=== PATIENT | male | born 1980 | race Caucasian/White ===

== ENCOUNTER 2020-04-02 13:36 | Emergency (ER) | payer BC, SELFPAY ==
--- NOTE | ~2020-04-02 | XR_ITS ---
XR knee RT min 4V DATE: 04/02/2020 14:20 INDICATION: Stepped down along and twisted knee. Posterolateral knee pain. TECHNIQUE: 5 views COMPARISON: None FINDINGS: There is a benign sclerotic fibrous cortical defect of the distal femoral shaft. There is enthesopathy of the superior pole of patella at the quadriceps tendon insertion. No fracture or dislocation or joint effusion of the right knee is detected. Joint spaces are relative ly preserved. No radiopaque intra-articular loose body or chondrocalcinosis. IMPRESSION: No fracture or dislocation or joint effusion Reviewed, dictated and finalized at location A.
[2020-04-02 13:50] VITALS: BP 169/88; PULSE 93; RESP 14; TEMP 36.8; O2SAT 98
--- NOTE | 2020-04-02 13:52 | ED.LOWEXIN ---
HPI - Extremity Injury (Lower) General Chief Complaint: Extremity Injury, Lower Stated Complaint: knee pain Source: patient and RN notes reviewed Mode of arrival: ambulatory Limitations: no limitations History of Present Illness HPI Narrative: This is a 39 years old male presents to the office for an evaluation of right knee pain since yesterday. States, is twisted his right knee when he stepped on an uneven ground. He did not fall onto the ground or landed on his knee. Did not hear any popping noise. Complained of a little pain immediately after incident however pain is worse today. No oral pain medication prior to arrival. He put on knee brace before he come here. Denies numbness or tingling in his lower extremities. Denies previous history of knee surgery. Related Data Home Medications Medication Instructions Recorded Confirmed empagliflozin [Jardiance] 25 mg PO DAILY 04/02/20 04/02/20 metformin 2,000 mg PO DAILY 04/02/20 04/02/20 Allergies Allergy/AdvReac Type Severity Reaction Status Date / Time No Known Allergies Allergy Verified 04/02/20 13:59 Review of Systems Review of Systems: Narrative: CONSTITUTIONAL: Denies feeling ill ENT: Denies congestion CARDIOVASCULAR: Denies chest pain RESPIRATORY: Denies dyspnea GASTROINTESTINAL: Denies abdominal pain, nausea, vomiting SKIN: Denies lesion MUSCULOSKELETAL: Reports right knee pain, intermittently with soreness to stapping pain. NEUROLOGIC: Denies lightheaded/numbness PMFSH Past Medical History Medical History (Updated 04/02/20 @ 14:30 by BASIM Sandoval) Diabetes mellitus, type II Comments At time of signature, I agree with nursing past medical, surgical, social and family history. There is no relevant family history pertinent to the presenting complaint. Exam Narrative: Exam Narrative: GENERAL: This is a well-nourished, well-developed patient, in no apparent distress. CARDIOVASCULAR: Regular rate and rhythm without murmurs, gallops, or rubs. RESPIRATORY: Clear to auscultation. Breath sounds equal bilaterally. No wheezes, rales, or rhonchi. NEURO: awake, alert, and oriented to person, place and time. There were no obvious focal neurologic abnormalities. Steady gait EXTREMITIES: Patient is able to bear weight and ambulate with antagia gait. No surface of trauma or obvious effusion. No overlying erythema or warmth. The R knee is without obvious asymmetry or deformity when comparing to the left. Patient is able to do a deep knee bend with symmetry, able to fully extended knee, internal and external rotation. Nontender to palpate of the patella, no effusion. Nontender over the infrapatellar tendon. Nontender over the medial or lateral joint line, or medial or lateral tibial plateaus. Nontender over the proximal fibular head. Nontender, fullness, or mass of the popliteal fossa. NO quadriceps tenderness. Distal motor and neurovascular status intact. [place] Coma Scale Eye Opening: Spontaneous 4 Erika Coma Scale Motor: Obeys Commands 6 Erika Coma Scale Verbal: Oriented 5 Course Vital Signs Vital signs: Vital Signs Temperature 98.2 F 04/02/20 13:50 Pulse Rate 93 04/02/20 13:50 Respiratory Rate 14 04/02/20 13:50 Blood Pressure 169/88 H 04/02/20 13:50 Pulse Oximetry 98 04/02/20 13:50 Temperature 98.2 F 04/02/20 13:50 Pulse Rate 93 04/02/20 13:50 Respiratory Rate 14 04/02/20 13:50 Blood Pressure 169/88 H 04/02/20 13:50 Pulse Oximetry 98 04/02/20 13:50 MDM - Extremity Injury (Lower) MDM Narrative Medical decision making narrative: Elevated BP noted: patient is informed that they may have pre-hypertension or hypertension based on a blood pressure reading in the department. I recommend the patient call the primary care provider listed on their discharge instructions this week to arrange follow-up for further evaluation of possible pre-hypertension or hypertension within 1-2week. Discharge instructions rev
[2020-04-02] MEDS: IBUPROFEN 400 MG TABLET 800 MG PO (14:19)
== END 2020-04-02 14:45 | disposition home or self-care (01) ==
PROVIDERS: Emergency Provider Nurse Practitioner
DX: S83.91XA Sprain of unspecified site of right knee, initial encounter (principal); E11.9 Type 2 diabetes mellitus without complications; W18.49XA Other slipping, tripping and stumbling without falling, initial encounter
CPT/HCPCS: 73564; 99203; A9270; G0463